=== PATIENT | male | born 2000 | race Caucasian/White ===

== ENCOUNTER 2023-08-27 13:54 | Day surgery (SDC) | payer OTHER ==
[~2023-08-27] VITALS: Ht 180.3 cm; Wt 118.5 kg
[2023-08-27] VITALS (7 sets, daily range): BP systolic 93–132; BP diastolic 55–75
[~2023-08-27 13:54] MED LIST: ACETAMINOPHEN; AMOX50SU PO; ANTOXYBENA OT; GARLIC
--- NOTE | 2023-08-27 15:08 | NUR ---
Patient up to Ambulate independently. Gait steady. Surgical site prepped with 2% Chlorhexidine cloth wipe. History, Chart, Medications and Allergies reviewed before start of procedure. Lungs clear T/O to Auscultation. Patient confirms NPO status and agrees with scheduled surgery. Pre-Op teaching done. Pt verbalizes understanding. Patient States Post-Procedure ride home has been arranged WITH MOM.
--- NOTE | 2023-08-27 17:18 | NUR ---
DISCHARGE NOTE PT A&OX4, BREATHING RA, VSS, NO COMPLAINTS. PT HAD PO FLUIDS IN PACU AND TOLDERATED WELL. REFUSED PO IN DSU. Discharge instructions reviewed with patient. Patient verbalizes understanding. Copy given to patient to take home. Dressing to procedure site clean, dry, intact with no visible drainage, swelling, erythema or bruising noted. Discharged via wheelchair to private car for ride home.
== END 2023-08-27 16:55 | disposition home or self-care (01) ==
LOC: ORSCSDS 13:54 → ORSCMMR 13:55 → ORSCSDS 14:15
PROVIDERS: Orthopaedic Surgery
PROC: 0JBH0ZX Excision of Left Lower Arm Subcutaneous Tissue and Fascia, Open Approach, Diagnostic (ICD-10-PCS; principal; 2023-08-27 15:30)
DX: D17.79 Benign lipomatous neoplasm of other sites (principal); Z68.36 Body mass index [BMI] 36.0-36.9, adult; Z87.891 Personal history of nicotine dependence
CPT/HCPCS: 88304; J0690; J1885; J2250; J2704; J3010; J7120